=== PATIENT | female | born 1990 | race Caucasian/White ===

== ENCOUNTER 2022-05-17 12:19 | Outpatient (CLI) | payer OTHER, MEDICAID, SELFPAY ==
[2022-05-17 23:09] LABS: Chlamydia DNA Amplified* NOT DETECTED (No Detected); GC DNA Amplified* NOT DETECTED (No Detected)
== END 2022-05-17 12:20 | disposition home or self-care (01) ==
LOC: LKVREF 12:21
PROVIDERS: PCP Physician Assistant Medical; Visit Provider Physician Assistant Medical
DX: Z00.00 Encounter for general adult medical examination without abnormal findings (principal); Z11.3 Encounter for screening for infections with a predominantly sexual mode of transmission
CPT/HCPCS: 87491; 87591

== ENCOUNTER 2023-01-16 14:40 | Outpatient (CLI) | payer OTHER, MEDICAID, SELFPAY | END 2023-01-16 14:41 | disposition home or self-care (01) | PROVIDERS: PCP Physician Assistant Medical; Visit Provider Physician Assistant Medical | DX: F41.9 Anxiety disorder, unspecified (principal); F32.A Depression, unspecified; Z13.21 Encounter for screening for nutritional disorder; G47.9 Sleep disorder, unspecified; F90.9 Attention-deficit hyperactivity disorder, unspecified type; F60.3 Borderline personality disorder | CPT/HCPCS: 82306; 84443 ==

== ENCOUNTER 2024-01-06 13:41 | Outpatient (CLI) | payer BC, SELFPAY | END 2024-01-06 13:42 | disposition home or self-care (01) | LOC: NFLDREF 01-10 14:37 | PROVIDERS: PCP Physician Assistant Medical; Referring Provider Physician Assistant Medical; Visit Provider Physician Assistant Medical | DX: R23.3 Spontaneous ecchymoses (principal) | CPT/HCPCS: 80053 ==

== ENCOUNTER 2024-12-23 13:45 | Outpatient (CLI) | payer BC, SELFPAY | END 2024-12-23 13:46 | disposition home or self-care (01) | LOC: NFLDREF 12-31 01:49 | PROVIDERS: PCP Physician Assistant Medical; Referring Provider Physician Assistant Medical; Visit Provider Physician Assistant Medical | DX: Z01.84 Encounter for antibody response examination (principal); F32.A Depression, unspecified; G47.9 Sleep disorder, unspecified | CPT/HCPCS: 86787 ==

== ENCOUNTER 2025-01-28 09:27 | Outpatient (CLI) | payer BC, SELFPAY ==
--- NOTE | 2025-01-28 09:45 | CRLHL7_ITS ---
For Patients: As a result of the Cures Act, medical imaging exams and procedure reports are released immediately into your electronic medical record. You may view this report before your referring provider. If you have questions, please contact your health care provider. BILATERAL DIGITAL SCREENING MAMMOGRAM WITH COMPUTER-AIDED DETECTION AND TOMOSYNTHESIS CLINICAL HISTORY: Routine screening exam. COMPARISON: None. Baseline. TECHNIQUE: Digital mammogram in CC and MLO projections including computer-aided detection (CAD) and tomosynthesis. BREAST COMPOSITION: The breasts are heterogeneously dense, which may obscure small masses. FINDINGS: RIGHT Breast: There is an asymmetry in the inferior breast, middle depth. LEFT Breast: No suspicious findings. IMPRESSION: RIGHT breast asymmetry. RECOMMENDATIONS: Additional mammographic views of the RIGHT breast including 90-degree lateral and spot compression MLO. RIGHT breast ultrasound may also be required. [facility] will contact the patient for follow-up. BI-RADS Category 0: Incomplete: Need Additional Imaging Evaluation A lay language report of this examination will be provided to the patient. Dictated by Jenna Torres MD @ 01/30/2025 7:39:46 AM /sp SP/Dictated by: Jenna Torres MD @ 01/30/2025 7:39:00 AM (Electronically Signed)
== END 2025-01-28 09:28 | disposition home or self-care (01) ==
LOC: MAMMO 09:27
PROVIDERS: PCP Physician Assistant Medical; Visit Provider Physician Assistant Medical
DX: Z12.31 Encounter for screening mammogram for malignant neoplasm of breast (principal); R92.333 Mammographic heterogeneous density, bilateral breasts; Z80.3 Family history of malignant neoplasm of breast
CPT/HCPCS: 77063; 77067

== ENCOUNTER 2025-02-11 10:36 | Outpatient (CLI) | payer BC, SELFPAY ==
--- NOTE | 2025-02-11 10:45 | CRLHL7_ITS ---
For Patients: As a result of the Century Cures Act, medical imaging exams and procedure reports are released immediately into your electronic medical record. You may view this report before your referring provider. If you have questions, please contact your health care provider. DIGITAL DIAGNOSTIC RIGHT MAMMOGRAM USING TOMOSYNTHESIS RIGHT BREAST ULTRASOUND CLINICAL HISTORY: RIGHT breast mass/asymmetry. COMPARISON: 01/28/2025. TECHNIQUE: Digital RIGHT mammogram in two projections. Tomosynthesis was used in this interpretation. Real-time ultrasound imaging of RIGHT breast with imaging documentation. BREAST COMPOSITION: The breast is heterogeneously dense, which may obscure small masses. FINDINGS: 3D spot compression CC and 3D true lateral RIGHT breast mammogram images submitted. Persistent nodular density inferior RIGHT breast without architectural distortion or suspicious calcification. Targeted RIGHT breast ultrasound performed. At 5 o`clock 3 cm from nipple there is a simple circumscribed anechoic cyst which measures 6 x 4 x 9 mm. IMPRESSION: Benign cyst RIGHT breast 5 o`clock 3 cm from the nipple measuring 9 mm. No evidence of malignancy. RECOMMENDATIONS: Age-appropriate screening mammography. A lay language report of this examination will be provided to the patient. BI-RADS Category 2: Benign Dictated by Grover Smalls MD @ 02/11/2025 11:41:07 AM jj/Dictated by: Grover Smalls MD @ 02/11/2025 11:41:00 AM (Electronically Signed)
--- NOTE | 2025-02-11 11:15 | CRLHL7_ITS ---
For Patients: As a result of the Cures Act, medical imaging exams and procedure reports are released immediately into your electronic medical record. You may view this report before your referring provider. If you have questions, please contact your health care provider. SEE DIGITAL DIAGNOSTIC RIGHT MAMMOGRAM PERFORMED THE SAME DAY CRL:john [email or web address]/Dictated by: Grover Smalls MD @ 02/11/2025 11:38:00 AM (Electronically Signed)
== END 2025-02-11 10:37 | disposition home or self-care (01) ==
LOC: MAMMO 10:37
PROVIDERS: PCP Physician Assistant Medical; Visit Provider Physician Assistant Medical
DX: N63.10 Unspecified lump in the right breast, unspecified quadrant (principal); R92.8 Other abnormal and inconclusive findings on diagnostic imaging of breast
CPT/HCPCS: 76642; 77065; G0279